=== PATIENT | male | born 1990 | race Caucasian/White ===

== ENCOUNTER 2017-10-25 19:03 | Emergency (ER) | payer OTHER ==
[~2017-10-25] VITALS: Ht 175.3 cm; Wt 68.0 kg
== END 2017-10-25 20:27 | disposition home or self-care (01) ==
LOC: ED 19:03
PROC: 0HQFXZZ Repair Right Hand Skin, External Approach (ICD-10-PCS; principal; 2017-10-25)
DX: S61.411A Laceration without foreign body of right hand, initial encounter (principal); F17.200 Nicotine dependence, unspecified, uncomplicated; W25.XXXA Contact with sharp glass, initial encounter; Y93.G1 Activity, food preparation and clean up
CPT/HCPCS: 12001; 99282

== ENCOUNTER 2021-08-28 01:19 | Emergency (ER) | payer OTHER ==
[~2021-08-28] VITALS: Ht 175.3 cm; Wt 77.1 kg
--- OUTSIDE RECORDS SUMMARY | 2021-08-28 01:22 | XMS ---
PreManage Notification: JÚNIOR DANG Security Rating Officer Events No recent Security Events currently on file CRITERIA MET - [facility] CARE PROVIDERS There are no care providers on record at this time. Tameka has no Care Guidelines for this patient. Ari VISIT COUNT (12 MO.) 1 TAN Lucas TOTAL 1 NOTE: Visits indicate total known visits. ED/C VISIT TRACKING (12 MO.) 08/28/2021 01:19 TAN Bhatt OR TYPE: Emergency COMPLAINT: - OVERDOSE INPATIENT VISIT TRACKING (12 MO.) No inpatient visits to display in this time frame [id number]
== END 2021-08-28 03:42 | disposition home or self-care (01) ==
LOC: ED 01:19
DX: T40.2X1A Poisoning by other opioids, accidental (unintentional), initial encounter (principal); F17.200 Nicotine dependence, unspecified, uncomplicated
CPT/HCPCS: 81001; 96374; 96375; 99284-25; G0480; J2405; J7030

== ENCOUNTER 2023-05-15 11:31 | Emergency (ER) | payer OTHER ==
[~2023-05-15] VITALS: Ht 175.3 cm; Wt 88.0 kg
[2023-05-15] MEDS ORDERED: GABAPENTIN300 MG PO (12:06)
[2023-05-15] MEDS ORDERED: DOXYCYCLINE HY100 MG PO (13:00)
[2023-05-15 13:09] VITALS: BP 110/99
== END 2023-05-15 13:09 | disposition home or self-care (01) ==
LOC: ED 11:31
DX: L08.9 Local infection of the skin and subcutaneous tissue, unspecified (principal); F32.A Depression, unspecified; F41.9 Anxiety disorder, unspecified; F17.200 Nicotine dependence, unspecified, uncomplicated; Z79.899 Other long term (current) drug therapy
CPT/HCPCS: 99282